=== PATIENT | male | born 1960 | race African-American/Black ===

== ENCOUNTER 2019-08-30 12:16 | Inpatient (IN) | payer MEDICAID ==
[~2019-08-30] VITALS: Ht 190.5 cm; Wt 87.1 kg
[2019-08-30 13:46] LABS: BASOPHILS % 0.5 % (0.0-2.0); EOSINOPHILS % 1.3 % (0.0-5.0); HEMATOCRIT. 41.2 % (42.0-52.0); HEMOGLOBIN. 13.6 g/dL (14.0-18.0); LYMPHOCYTES % 15.1 % (20.0-50.0); MEAN CORPUSCULAR HEMOGLOBIN 29.3 pg (28.0-32.0); MEAN CORPUSCULAR VOLUME 88.7 fL (80.0-94.0); MONOCYTES % 13.8 % (2.0-8.0); NEUTROPHILS % 69.3 % (40.0-76.0); PLATELET 184 x1000/uL (130-400); RED BLOOD CELL COUNT 4.64 mill/uL (4.7-6.1); RED CELL DISTRIBUTION WIDTH 17.8 % (11.6-14.6)
[2019-08-30 13:47] LABS: CHLORIDE 112 mEq/L (98-107)
[2019-08-30] MEDS ORDERED: FUROSEMIDE 40MG/4ML VIAL IV ONE (14:30)
[2019-08-30] MEDS ORDERED: ASPIRIN 81MG TABLET PO ONE (14:30)
[2019-08-30] MEDS ORDERED: CEPHALEXIN 250MG CAPSULE PO ONE (15:30)
[2019-08-30] MEDS: NITROGLYCERIN 0.4MG TABLET SL SL PRN ×2 (15:33→16:30)
[2019-08-30 17:25] VITALS: BP 139/92
[2019-08-30 18:29] VITALS: BP 139/92
[2019-08-30] MEDS ORDERED: MORPHINE SULFATE 2 MG/ML CPJ (NOT FOR IM USE) IV PRN (18:45)
[2019-08-30] MEDS ORDERED: ACETAMINOPHEN 325MG TABLET PO PRN (18:45)
[2019-08-30] MEDS ORDERED: MAGNESIUM/ALUMINUM HYDROXIDE/SIMETHICONE 30ML UDC PO PRN (18:45)
[2019-08-30] MEDS ORDERED: HYDRALAZINE 20MG/ML VIAL IV PRN (18:45)
[2019-08-30] MEDS ORDERED: HYDROCODONE/ACETAMINOPHEN 5/325MG TABLET PO PRN (18:45)
[2019-08-30] MEDS ORDERED: DOCUSATE SODIUM 100MG CAPSULE PO PRN (18:45)
[2019-08-30] MEDS ORDERED: ONDANSETRON HCL 4MG/2ML INJ IV PRN (18:45)
[2019-08-30 20:00] VITALS: BP 141/99
[2019-08-30] MEDS: ENOXAPARIN 40MG/0.4ML SYR SUBCUT SCH (21:11)
[2019-08-31] VITALS: BP 136/97
[2019-08-31 01:00] LABS: CREATINE KINASE MB FRACTION 1.6 ng/mL (0.5-3.6)
[2019-08-31 04:00] VITALS: BP 121/87
[2019-08-31 07:54] VITALS: BP 123/81
[2019-08-31 08:24] LABS: HEMATOCRIT. 36.9 % (42.0-52.0); MEAN CORPUSCULAR HEMOGLOBIN 28.7 pg (28.0-32.0); MEAN CORPUSCULAR VOLUME 88.4 fL (80.0-94.0); MEAN PLATELET VOLUME 9.5 fl (7.4-10.4); PLATELET 152 x1000/uL (130-400); RED BLOOD CELL COUNT 4.18 mill/uL (4.7-6.1); RED CELL DISTRIBUTION WIDTH 17.7 % (11.6-14.6)
[2019-08-31 08:42] LABS: CHLORIDE 111 mEq/L (98-107)
[2019-08-31 08:52] LABS: CREATINE KINASE 148 IU/L (39-308)
[2019-08-31 08:54] LABS: CREATINE KINASE MB FRACTION 1.2 ng/mL (0.5-3.6)
[2019-08-31] MEDS: ASPIRIN 81MG EC TABLET PO SCH (09:36)
[2019-08-31] MEDS: AMLODIPINE 10MG TABLET PO SCH (09:37)
[2019-08-31] MEDS: FUROSEMIDE 40MG/4ML VIAL IV SCH (09:44)
[2019-08-31 12:00] VITALS: BP 122/90
[2019-08-31 13:46] LABS: PLATELET ESTIMATE NORMAL
[2019-08-31 16:00] VITALS: BP 112/76
[2019-08-31 20:00] VITALS: BP 119/85
[2019-08-31] MEDS: ENOXAPARIN 40MG/0.4ML SYR SUBCUT SCH (20:54)
[2019-09-01] VITALS (7 sets, daily range): BP systolic 103–128; BP diastolic 65–91
[2019-09-01] MEDS: FUROSEMIDE 40MG/4ML VIAL IV SCH (09:50)
[2019-09-01] MEDS: ASPIRIN 81MG EC TABLET PO SCH (09:50)
[2019-09-01] MEDS: AMLODIPINE 10MG TABLET PO SCH (09:51)
[2019-09-01] MEDS: ENOXAPARIN 40MG/0.4ML SYR SUBCUT SCH ×2 (20:00→21:19)
== END 2019-09-01 22:35 | disposition home or self-care (01) | DRG 469 ==
LOC: ER 12:16 → 8WST 15:24 → ENRESERV 16:16
PROVIDERS: ADMIT Hospitalist; ATTEND Hospitalist
DX: N17.9 Acute kidney failure, unspecified (principal); I50.43 Acute on chronic combined systolic (congestive) and diastolic (congestive) heart failure; I42.9 Cardiomyopathy, unspecified; L97.909 Non-pressure chronic ulcer of unspecified part of unspecified lower leg with unspecified severity; I11.0 Hypertensive heart disease with heart failure; Z82.49 Family history of ischemic heart disease and other diseases of the circulatory system
CPT/HCPCS: 36415; 71045; 82550; 82553; 83880; 84484; 93005; 93306; 93970; 96374; 97162; 99285; J1650; J1940